=== PATIENT | male | born 1975 | race American Indian/Alaskan Native ===

== ENCOUNTER 2017-08-15 17:50 | Emergency (ER) | payer OTHER ==
[~2017-08-15] VITALS: Ht 175.3 cm; Wt 113.4 kg
[2017-08-15] MEDS ORDERED: NAPR550 PO (20:24)
[2017-08-15] MEDS ORDERED: Ultram50 MG PO (20:24)
== END 2017-08-15 20:56 | disposition home or self-care (01) ==
LOC: ER 17:50
DX: S16.1XXA Strain of muscle, fascia and tendon at neck level, initial encounter (principal); S29.012A Strain of muscle and tendon of back wall of thorax, initial encounter; S39.012A Strain of muscle, fascia and tendon of lower back, initial encounter; S46.911A Strain of unspecified muscle, fascia and tendon at shoulder and upper arm level, right arm, initial encounter; S09.90XA Unspecified injury of head, initial encounter; V47.5XXA Car driver injured in collision with fixed or stationary object in traffic accident, initial encounter
CPT/HCPCS: 70450; 72070; 72100; 72125; 73030; 96374; 96375; 96376; 99284; J1170; J1885; J2405

== ENCOUNTER 2017-08-18 08:45 | Emergency (ER) | payer OTHER ==
[~2017-08-18] VITALS: Ht 175.3 cm; Wt 108.9 kg
[~2017-08-18 08:45] MED LIST: NAPR550 PO; Ultram50 MG PO
[2017-08-18] MEDS ORDERED: SERT50 PO (09:32)
[2017-08-18] MEDS ORDERED: METO50ER PO (09:32)
[2017-08-18] MEDS ORDERED: LORA1 (09:32)
== END 2017-08-18 09:47 | disposition home or self-care (01) ==
LOC: ER 08:45
DX: S46.001A Unspecified injury of muscle(s) and tendon(s) of the rotator cuff of right shoulder, initial encounter (principal); Z88.8 Allergy status to other drugs, medicaments and biological substances; Z79.899 Other long term (current) drug therapy; F17.200 Nicotine dependence, unspecified, uncomplicated; V59.40XA Driver of pick-up truck or van injured in collision with unspecified motor vehicles in traffic accident, initial encounter
CPT/HCPCS: 99282